=== PATIENT | female | born 1950 | race Caucasian/White ===

== ENCOUNTER 2016-02-29 20:13 | Emergency (ER) | payer OTHER ==
[~2016-02-29] VITALS: Ht 154.9 cm; Wt 49.9 kg
[~2016-02-29 20:13] MED LIST: ASPIRIN 81MG TA81 MG PO; ATENOLOL25 MG PO; ATIVAN1 M1 PO; CLONIDINE 0.2M0.2 MG PO; FLONASE 50 MCG16 GM; HYDROCHLOROTH12.5 M1 PO; LIPITOR40 MG PO; LISINOPRIL/HCTZ1 TAB PO; LISINOPRIL40 MG PO; LORATADINE 10MG10 M1 PO; NITROGLYCERIN0.4 MG SL; PLAVIX 75MG TAB75 MG PO; PRAVACHOL 20MG.20 MG PO; TOVIAZ8 MG PO
[2016-02-29] MEDS ORDERED: MONTELUKAST SOD10 MG PO (20:42)
[2016-02-29 20:43] LABS: HEMOGLOBIN 11.9 g/dL (12.2-16.2); LYMPH # 4.9 K/mm3 (0.7-4.5); LYMPH % 56.7 % (10-50.0)
[2016-02-29] MEDS ORDERED: PANTOPRAZOLE SO40 M1 PO (20:43)
[2016-02-29] MEDS ORDERED: AMLO5TAB PO (20:43)
[2016-02-29 20:56] LABS: URINE BILIRUBIN - DIPSTICK NEGATIVE (NEG); URINE BLOOD NEGATIVE (NEG)
[2016-02-29 21:01] LABS: AMPHETAMINES/METAMPHETAMINES NEGATIVE ng/mL (<1000)
--- NOTE | 2016-02-29 21:10 | Emergency Room Report ---
History of Present Illness Time Seen by [id number] Presenting Problem in Triage Pt arrived:Walked Presenting Problem:PT COMPLAINING OF PAIN IN LEFT SIDE OF CHEST THAT STARTED APPROX 10 MINUTES AGO. PT STATES THAT SHE WAS LAYING ON THE COUCH WHEN IT STARTED. 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 N Clinical Suspician of Infection? N Mental Status: 1 - Regular (Normal Baseline) Sepsis Risk:Low Sepsis Risk Have you (or family members/close friends) recently traveled outside the [place]? N If Yes, where/when: Have you had exposure to infectious disease within the past month? N TB? Other? Specify: Source patient, RN notes reviewed, family, old records Exam Limitations no limitations Comment pt with brief episode of lt ant pinching pain tonigh t but none now Cardiac Chest Pain Chest pain indicative of cardiac No Timing/Duration this evening Severity moderate ALLERGIES Coded Allergies: No Known Allergies (02/29/16) Home Medications Reported Medications Montelukast Sodium 10 MG PO QHS #30 Lisinopril (Lisinopril 40MG) 40 MG PO BID Hydrochlorothiazide (Hydrochlorothiazide 12.5MG) 25 MG PO DAILY Atorvastatin Calcium (Atorvastatin) 40 MG PO DAILY Fluticasone Propionate (Flonase 50 Mcg Nasal [place]) 1 SPRAY NA BID ASPIRIN (Aspirin) 81 MG PO DAILY CLOPIDOGREL BISULFATE (PLAVIX) 75 MG PO DAILY NITROGLYCERIN (Nitrostat) 0.4 MG SL [id number] PRN CP Pantoprazole Sodium 40 MG PO DAILY #30 Amlodipine Besylate (Amlodipine) 5 MG PO DAILY #30 History Medical History General CAD? Yes Angina: No [place]: Yes Hypertension? Yes Hyperlipidemia? No CHF? No DVT? No PE? No COPD? No Asthma? No Anemia? No GERD? Yes Gastric ulcers? No GI Bleed? No Hernia? No Thyroid Problems? No Hypothyroidism? No CVA? No Seizures? No Diabetes? No Renal Insuffiency? No End Stage Renal Disease? No UTI? No Stones? No BPH? No GB Disease: Yes Nephritic Syndrome? No Asplenia? No Hepatitis? Yes Sickle Cell Disease? No Arthritis? No Migraines? No Cataracts? Yes Glaucoma? No MRSA? No HIV? No TB? No Anxiety? Yes Depression? Yes Cancer? Yes Site: BREAST More? No Immunization Hx DT/Tetanus NOT SURE Surgical Hx Previous Surgery?Y [place] L BREAST LUMPECTOMY/LYMPH -NODES REMOVED CARDIAC STENTS X5 2015 Social History Smoking Hx Smoker: Current Every Day Smoker Tobacco: Yes Type Cigarettes Packs/day < 1 Pack Are you/the child exposed to second-hand smoke: Yes Alcohol Alcohol: No Drugs none Review of Systems All Other Systems Reviewed and Negative Constitutional denies fever Eyes denies drainage ENT denies: ear pain, epistaxis, throat pain. Respiratory denies cough, denies shortness of breath, denies wheezing Cardiovascular chest pain, denies palpitations, denies syncope Gastrointestinal denies abdominal pain, denies diarrhea, denies vomiting Genitourinary denies: dysuria, frequency, hesitancy, hematuria. Musculoskeletal denies back pain, denies joint pain, denies neck pain Skin denies rash Psychiatric/Neurological denies headache, denies seizure Physical Exam Vital Signs Vital Signs Date Time Temp Pulse Resp B/P Pulse O2 O2 Flow FiO2 Ox Delivery Rate 02/284 61 20 124/70 95 02/29 2252 60 20 144/87 96 02/29 2252 61 18 144/87 96 02/281 69 20 135/82 96 02/28 2135 65 20 145/86 98 02/284 63 18 161/95 98 02/28 2013 98.3 82 18 166/104 97 - WBC >12,000 or <4,000 or 10% bands? 2 or more SIRS Criteria Met? B/P:124/70 MAP:124 Creatinine >2.0? UA output<0.5ml/kg/hr for 2 hrs? Platelet count >100,000? Lactate >2.0mmol/1? INR >1.2 or PTT > than 60 sec? Evidence of Organ Dysfunction? Provider documented clinical suspician of infection? N Sepsis Criteria Count: 0 Sepsis Risk: Low Sepsis Risk General Appearance no apparent distress Eye Exam - bilateral eye PERRL, bilateral eye EOMI Ear, Nose, Throat normal ENT inspection Neck supple Respiratory Status No: respiratory distress. Lung Sounds bilateral: lungs clear. 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 No Results/Orders Laboratory Tests 02/29/162237: Troponin I 0.02 02/29/162039: Opiates Screen NEGATIVE, Urine Methadone Screen NEGATIVE, Barbiturates NEGATIVE, Phencyclidine Screen NEGATIVE, Amphetamines Screen NEGATIVE, Benzodiazepines Screen NEGATIVE, Cocaine Screen NEGATIVE, Marijuana (THC) Screen NEGATIVE, Urine Color YELLOW, Urine Appearance CLEAR, Urine pH 7.0, Ur Specific [place] 1.010, Urine Protein NEGATIVE, Urine Ketones NEGATIVE, Urine Blood NEGATIVE, Urine Nitrate NEGATIVE, Urine Bilirubin NEGATIVE, Urine Urobilinogen 0.2, Ur Leukocyte Esterase NEGATIVE, Amorphous Sediment TRACE, Urine Glucose NEGATIVE 02/29/16 2030: Sodium 142, Potassium 3.4 L, Chloride 108 H, Carbon Dioxide 24, BUN 13, Creatinine 0.6, Estimated Creat Clear 75, Estimated GFR (MDRD) 101, Glucose 94, Calcium 8.2 L, Total Bilirubin 0.4, AST 21, ALT 19, Alkaline Phosphatase 76, Creatine Kinase 91, CK-MB (CK-2) Rel Index 1.3, CK and CKMB Interp 1.2, Troponin I 0.02, Total Protein 6.8, Albumin 3.6, Globulin 3.2, Albumin/Globulin Ratio 1.1 , WBC 8.7, RBC 4.20, Hgb 11.9 L, Hct 37.0, MCV 88.2, RDW 16.0, Plt Count 229, MPV 8.8, Gran % 35.0 L, Gran # 3.0, Total Counted 100, Lymphocytes % 56.7 H, Monocytes % 6.0, Eosinophils % 1.5, Basophils % 0.7, Neutrophils 31 L, Band Neutrophils 1, Lymphocytes (Manual) 66 H, Lymphocytes # 4.9 H, Monocytes ( Manual) 1 L, Monocytes # 0.5, Eosinophils # 0.1, Eosinophils # (Manual) 1, Basophils # 0.1, Platelet Estimate NORMAL, Hypochromasia 1+, PUBS MCHC 32.0, MCH 28.2 Current Medication Orders Sig/Reba Start time Last Medication Dose Route Stop Time Status Admin Aspirin 243 MG ONCE ONE 02/28 2045 DC 02/28 PO 02/28 Sodium Chloride 10 ML PRN PRN 02/28 2045 AC IV 03/01 2033 Aspirin 0 .STK-MED ONE 02/29 2040 DC .ROUTE Orders Procedure Date/time Status TROPONIN I 02/29 2228 Complete ELECTROCARDIOGRAM REQUEST 02/28 2034 Active CHEST(2 VIEWS-NOT PORTABLE) 02/28 2034 Active IV SALINE LOCK 02/28 2034 Active URINALYSIS/COMPLETE 02/28 2034 Complete DRUG ABUSE SCREEN (TRIAGE) 02/28 2034 Complete CBC WITH AUTO DIFF 02/28 2034 Complete CARDIAC ENZYMES 02/28 2034 Complete CHEM 12 PROFILE 02/28 2034 Complete DIFFERENTIAL-WBC 02/28 2030 Complete 12 LEAD EKG-GILBERT (INITIAL) 02/28 2011 Active 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 ST/Twave chgs XRAY/CT/US XRAY/CT/US XRAY chest XR interpretation by reviewed by me Xray Results normal/NAD Departure Departure Time of Disposition 0004 Disposition DC Home or Self Care(routine) Clinical Impression Primary Impression: Chest pain Qualifiers: Chest pain type: precordial chest pain Qualified Code: R07.2 - Precordial pain Condition STABLE Referrals TAMIKA SANDOVAL (Family) Patient Instructions DI for Chest Pain Additional Instructions return if any problems and see dr tabor ivett Discharge Counseling Counseled pt/family regarding diagnosis, test results, medications/RX, follow up needs ED Critical Care Critical Care No at [id number]
--- NOTE | 2016-02-29 21:10 | Emergency Room Report ---
History of Present Illness Time Seen by [id number] Presenting Problem in Triage Pt arrived:Walked Presenting Problem:PT COMPLAINING OF PAIN IN LEFT SIDE OF CHEST THAT STARTED APPROX 10 MINUTES AGO. PT STATES THAT SHE WAS LAYING ON THE COUCH WHEN IT STARTED. PT STATES THAT SHE TOOK 1 NTG TAB POSTPARTUM NURSE AND PAIN IMPROVED Onset of symptoms date/time:02/29/16 or onset unknown for: Treatment Prior to Arrival: PT STATES SHE TOOK 1 X NTG TAB POSTPARTUM NURSE POSTPARTUM NURSE Provided by :SELF Sepsis Risk Assessment: Temp: 98.3 B/P: 161/95 MAP: 124 Pulse: 63 Resp: 18 Recent fever? N Clinical Suspician of Infection? N Mental Status: 1 - Regular (Normal Baseline) Sepsis Risk:Low Sepsis Risk Have you (or family members/close friends) recently traveled outside the [place]? N If Yes, where/when: Have you had exposure to infectious disease within the past month? N TB? Other? Specify: Source patient, RN notes reviewed, family, old records Exam Limitations no limitations Comment pt with brief episode of lt ant pinching pain tonigh t but none now Cardiac Chest Pain Chest pain indicative of cardiac No Timing/Duration this evening Severity moderate ALLERGIES Coded Allergies: No Known Allergies (02/29/16) Home Medications Reported Medications Montelukast Sodium 10 MG PO QHS #30 Lisinopril (Lisinopril 40MG) 40 MG PO BID Hydrochlorothiazide (Hydrochlorothiazide 12.5MG) 25 MG PO DAILY Atorvastatin Calcium (Atorvastatin) 40 MG PO DAILY Fluticasone Propionate (Flonase 50 Mcg Nasal [place]) 1 SPRAY NA BID ASPIRIN (Aspirin) 81 MG PO DAILY CLOPIDOGREL BISULFATE (PLAVIX) 75 MG PO DAILY NITROGLYCERIN (Nitrostat) 0.4 MG SL [id number] PRN CP Pantoprazole Sodium 40 MG PO DAILY #30 Amlodipine Besylate (Amlodipine) 5 MG PO DAILY #30 History Medical History General CAD? Yes Angina: No [place]: Yes Hypertension? Yes Hyperlipidemia? No CHF? No DVT? No PE? No COPD? No Asthma? No Anemia? No GERD? Yes Gastric ulcers? No GI Bleed? No Hernia? No Thyroid Problems? No Hypothyroidism? No CVA? No Seizures? No Diabetes? No Renal Insuffiency? No End Stage Renal Disease? No UTI? No Stones? No BPH? No GB Disease: Yes Nephritic Syndrome? No Asplenia? No Hepatitis? Yes Sickle Cell Disease? No Arthritis? No Migraines? No Cataracts? Yes Glaucoma? No MRSA? No HIV? No TB? No Anxiety? Yes Depression? Yes Cancer? Yes Site: BREAST More? No Immunization Hx DT/Tetanus NOT SURE Surgical Hx Previous Surgery?Y Gallbladd L BREAST LUMPECTOMY/LYMPH -NODES REMOVED CARDIAC STENTS X5 2015 Social History Smoking Hx Smoker: Current Every Day Smoker Tobacco: Yes Type Cigarettes Packs/day < 1 Pack Are you/the child exposed to second-hand smoke: Yes Alcohol Alcohol: No Drugs none Review of Systems All Other Systems Reviewed and Negative Constitutional denies fever Eyes denies drainage ENT denies: ear pain, epistaxis, throat pain. Respiratory denies cough, denies shortness of breath, denies wheezing Cardiovascular chest pain, denies palpitations, denies syncope Gastrointestinal denies abdominal pain, denies diarrhea, denies vomiting Genitourinary denies: dysuria, frequency, hesitancy, hematuria. Musculoskeletal denies back pain, denies joint pain, denies neck pain Skin denies rash Psychiatric/Neurological denies headache, denies seizure Physical Exam Vital Signs Vital Signs Date Time Temp Pulse Resp B/P Pulse O2 O2 Flow FiO2 Ox Delivery Rate 02/284 61 20 124/70 95 02/29 2252 60 20 144/87 96 02/29 2252 61 18 144/87 96 02/281 69 20 135/82 96 02/28 2135 65 20 145/86 98 02/284 63 18 161/95 98 02/28 2013 98.3 82 18 166/104 97 - WBC >12,000 or <4,000 or 10% bands? 2 or more SIRS Criteria Met? B/P:124/70 MAP:124 Creatinine >2.0? UA output<0.5ml/kg/hr for 2 hrs? Platelet count >100,000? Lactate >2.0mmol/1? INR >1.2 or PTT > than 60 sec? Evidence of Organ Dysfunction? Provider documented clinical suspician of infection? N Sepsis Criteria Count: 0 Sepsis Risk: Low Sepsis Risk General Appearance no apparent distress Eye Exam - bilateral eye PERRL, bilateral eye EOMI Ear, Nose, Throat normal ENT inspection Neck supple Respiratory Status No: respiratory distress. Lung Sounds bilateral: lungs clear. 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 No Results/Orders Laboratory Tests 02/29/162237: Troponin I 0.02 02/29/162039: Opiates Screen NEGATIVE, Urine Methadone Screen NEGATIVE, Barbiturates NEGATIVE, Phencyclidine Screen NEGATIVE, Amphetamines Screen NEGATIVE, Benzodiazepines Screen NEGATIVE, Cocaine Screen NEGATIVE, Marijuana (THC) Screen NEGATIVE, Urine Color YELLOW, Urine Appearance CLEAR, Urine pH 7.0, Ur Specific [place] 1.010, Urine Protein NEGATIVE, Urine Ketones NEGATIVE, Urine Blood NEGATIVE, Urine Nitrate NEGATIVE, Urine Bilirubin NEGATIVE, Urine Urobilinogen 0.2, Ur Leukocyte Esterase NEGATIVE, Amorphous Sediment TRACE, Urine Glucose NEGATIVE 02/29/16 2030: Sodium 142, Potassium 3.4 L, Chloride 108 H, Carbon Dioxide 24, BUN 13, Creatinine 0.6, Estimated Creat Clear 75, Estimated GFR (MDRD) 101, Glucose 94, Calcium 8.2 L, Total Bilirubin 0.4, AST 21, ALT 19, Alkaline Phosphatase 76, Creatine Kinase 91, CK-MB (CK-2) Rel Index 1.3, CK and CKMB Interp 1.2, Troponin I 0.02, Total Protein 6.8, Albumin 3.6, Globulin 3.2, Albumin/Globulin Ratio 1.1 , WBC 8.7, RBC 4.20, Hgb 11.9 L, Hct 37.0, MCV 88.2, RDW 16.0, Plt Count 229, MPV 8.8, Gran % 35.0 L, Gran # 3.0, Total Counted 100, Lymphocytes % 56.7 H, Monocytes % 6.0, Eosinophils % 1.5, Basophils % 0.7, Neutrophils 31 L, Band Neutrophils 1, Lymphocytes (Manual) 66 H, Lymphocytes # 4.9 H, Monocytes ( Manual) 1 L, Monocytes # 0.5, Eosinophils # 0.1, Eosinophils # (Manual) 1, Basophils # 0.1, Platelet Estimate NORMAL, Hypochromasia 1+, PUBS MCHC 32.0, MCH 28.2 Current Medication Orders Sig/Reba Start time Last Medication Dose Route Stop Time Status Admin Aspirin 243 MG ONCE ONE 02/28 2045 DC 02/28 PO 02/28 Sodium Chloride 10 ML PRN PRN 02/28 2045 AC IV 03/01 2033 Aspirin 0 .STK-MED ONE 02/29 2040 DC .ROUTE Orders Procedure Date/time Status TROPONIN I 02/29 2228 Complete ELECTROCARDIOGRAM REQUEST 02/28 2034 Active CHEST(2 VIEWS-NOT PORTABLE) 02/28 2034 Active IV SALINE LOCK 02/28 2034 Active URINALYSIS/COMPLETE 02/28 2034 Complete DRUG ABUSE SCREEN (TRIAGE) 02/28 2034 Complete CBC WITH AUTO DIFF 02/28 2034 Complete CARDIAC ENZYMES 02/28 2034 Complete CHEM 12 PROFILE 02/28 2034 Complete DIFFERENTIAL-WBC 02/28 2030 Complete 12 LEAD EKG-GILBERT (INITIAL) 02/28 2011 Active 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 ST/Twave chgs XRAY/CT/US XRAY/CT/US XRAY chest XR interpretation by reviewed by me Xray Results normal/NAD Departure Departure Time of Disposition 0004 Disposition DC Home or Self Care(routine) Clinical Impression Primary Impression: Chest pain Qualifiers: Chest pain type: precordial chest pain Qualified Code: R07.2 - Precordial pain Condition STABLE Referrals TAMIKA SANDOVAL (Family) Patient Instructions DI for Chest Pain Additional Instructions return if any problems and see dr tabor ivett Discharge Counseling Counseled pt/family regarding diagnosis, test results, medications/RX, follow up needs ED Critical Care Critical Care No at 0015
[2016-02-29 21:26] LABS: NEUTROPHILS 31 % (42-76)
[2016-03-01 00:18] VITALS: BP 124/70
--- NOTE | 2016-03-01 08:47 | RADIOLOGY REPORT PS360 ---
CHEST(2 VIEWS-NOT PORTABLE) INDICATION: Chest pain COMPARISON: PA and lateral chest 03/06/2015 FINDINGS: The lung stinson are well expanded and appear clear of infiltrate. The cardiomediastinal silhouette and vascularity are normal. The costophrenic angles are clear. The bony thorax is normal. IMPRESSION: Normal chest.
== END 2016-03-01 00:19 | disposition home or self-care (01) ==
LOC: ER 20:13
PROVIDERS: Emergency Medicine
DX: R07.2 Precordial pain (principal); Z72.0 Tobacco use; I10 Essential (primary) hypertension; K21.9 Gastro-esophageal reflux disease without esophagitis; F41.8 Other specified anxiety disorders
CPT/HCPCS: G0477

== ENCOUNTER → 2016-04-10 | Outpatient (CLI) | payer OTHER ==
[~2016-04-10] MED LIST changes: +AMLO5TAB PO; +MONTELUKAST SOD10 MG PO; +PANTOPRAZOLE SO40 M1 PO
[2016-04-10 14:41] LABS: BUN 8 mg/dL (7-18)
[2016-04-10 14:42] LABS: GFR (ESTIMATED) 101 ML/MIN (59-)
== END ==
LOC: LAB 13:33
PROVIDERS: Internal Medicine Adolescent Medicine
DX: E78.5 Hyperlipidemia, unspecified (principal)